=== PATIENT | female | born 1990 | race Caucasian/White ===

== ENCOUNTER 2021-12-23 16:47 | Emergency (ER) | payer BC ==
[~2021-12-23] VITALS: Ht 162.6 cm; Wt 95.9 kg
[2021-12-23] MEDS ORDERED: WELLBUTRIN SR150 M3 PO (17:00)
[2021-12-23 17:37] LABS: BASO # 0.03 K/mm3 (0.02-0.10); EOS # 0.15 K/mm3 (0.04-0.40); HEMATOCRIT 40.2 % (37.0-47.0); HEMOGLOBIN 13.7 g/dL (12.5-16.0); LYMPH# 2.15 K/mm3 (1.50-4.00); MEAN CELL VOLUME 90 fl (78-100); MEAN CORPUSCULAR HEMOGLOBIN 31 pg (27-31); MEAN CORPUSCULAR HGB CONC 34 g/dL (33-37); MEAN PLATELET VOLUME 9.5 fl (7.4-10.4); MONO # 0.68 K/mm3 (0.20-0.80); NEU # 4.38 K/mm3 (1.40-6.50); PLATELET COUNT 404 K/mm3 (130-400); RED BLOOD COUNT 4.45 M/mm3 (4.10-5.30); RED CELL DISTRIBUTION WIDTH 12.3 % (11.5-14.5); WHITE BLOOD COUNT 7.4 K/mm3 (4.8-10.8)
[2021-12-23 17:50] LABS: POTASSIUM 4.1 mmol/L (3.5-5.1)
[2021-12-23 17:51] LABS: CALCIUM 9.8 mg/dL (8.3-10.5)
[2021-12-23 18:23] VITALS: BP 122/73
== END 2021-12-23 18:23 | disposition home or self-care (01) ==
LOC: ED 16:47
PROVIDERS: Family Medicine
DX: T75.4XXA Electrocution, initial encounter (principal)